=== PATIENT | female | born 1975 | race Caucasian/White ===

== ENCOUNTER 2022-06-14 06:13 | Day surgery (SDC) | payer BC, SELFPAY ==
[2022-06-14] VITALS (16 sets, daily range): BP systolic 110–146; BP diastolic 59–91; PULSE 55–85; RESP 16; TEMP 36.2–36.8; O2SAT 69–100; BMI 30.8
[2022-06-14] MEDS: LACTATED RINGERS 1000 ML 1,000 ML 100 ML IV (06:45)
[2022-06-14] MEDS: SODIUM CHLORIDE 0.9 % (FLUSH) 10 ML SYRINGE IVF (06:45)
[2022-06-14] MEDS: CEFAZOLIN 1 GM inj IVP (07:35)
[2022-06-14] MEDS: BUPIVACAINE 0.25% 30 ML INJECTION (07:50)
[2022-06-14] MEDS: BUPIVACAINE LIPOSOME 133 MG/10 ML INJ INFILTRATI (07:50)
--- NOTE | 2022-06-14 07:56 | SUR.PREOP ---
HOME COVID TEST NEGATIVE DONE 06/13/22 @ 1630.
[2022-06-14] MEDS: BACITRACIN OINTMENT BULK TUBE 1 APPLIC TOPICAL (08:08)
--- NOTE | 2022-06-14 08:16 | PM.GSPRC ---
Operative Note Date of procedure: 06/14/22 Type of Procedure: Excision of perianal skin tags Procedure Description: The patient was brought to the Operating Room, placed in the supine position, general anesthesia was administered, and the patient was intubated by Anesthesia without difficulty. The patient was then transferred to the Operating Room table, placed in the prone jackknife position with appropriate bumps and padding. Care was taken to ensure the genitalia and breasts were properly positioned on the hip and chest rolls, respectively. The shoulders and arms were positioned with care to protect the brachial plexus. The buttocks were taped laterally. A sterile prep and drape was done in the usual fashion. A formal timeout for patient safety was performed in accordance with hospital protocol, thereby correctly matching this patient with their diagnosis and intended procedure. External examination, digital rectal examination, and anoscopic examination were all done and revealed 2 large skin tags that were right and left lateral. Along the posterior midline was scar tissue from patient's previous anal fissure operation. Attention was directed to the largest skin tag which was positioned right lateral. An elliptical incision around the skin tag was made with electrocautery, taking care to stay above the muscle fibers. The wound was closed in a running locked manner starting at the apex (proximal aspect of elliptical excision) with 3-0 chromic suture, coming out to the anoderm and then running back up in a simple fashion and tying down at the apex. Hemostasis was excellent. The 2nd skin tag that was present left lateral was then excised in the same manner. Tissue was passed off to be sent to pathology. A mixture of Exparel and 0.25% Marcaine was used to anesthetize the area and perform a pudendal nerve block. The patient tolerated procedure well. There were no apparent complications. Instrument, sponge, and needle counts were correct at the end of the case. Findings: To large perianal skin tags positioned right lateral and left lateral, excised and repaired primarily. Anesthesia: GETA Surgeon: Judy Talbert MD Estimated blood loss (mL): 5 Condition: stable Disposition: same day
--- NOTE | 2022-06-14 08:17 | W.ANESCHARGE ---
Anesthesia Charges Start Date/Time Anesthesia Start Date: 06/14/22 Anesthesia Start Time: 07:30 Stop Date/Time Anesthesia Stop Date: 06/14/22 Anesthesia Stop Time: 08:19 Summary Emergency: No
--- NOTE | 2022-06-14 08:57 | SUR.PHASEII ---
PATIENT TURNED NERVE STIMULATOR OFF FOR PROCEDURE, TURNED BACK ON AT 0855. PATIENT HAVING ABDOMINAL CRAMPING AND THINKS NOW IT'S ON IT WILL HELP ABDOMINAL CRAMPING.
--- NOTE | 2022-06-14 09:21 | W.ANESCHARGE ---
Anesthesia Charges Start Date/Time Anesthesia Start Date: 06/14/22 Anesthesia Start Time: 07:30 Stop Date/Time Anesthesia Stop Date: 06/14/22 Anesthesia Stop Time: 08:19 Summary Emergency: No
[2022-06-14] MEDS: ALBUTEROL SULFATE 2.5 MG/3 ML VIAL.NEB NEB (09:26)
--- NOTE | 2022-06-14 09:39 | SUR.PHASEII ---
PATIENT'S O2 SATS DROP TO LOW 70'S-HIGH 60'S. PATIENT AWAKE, ALERT, COUGHING AND DEEP BREATHING WHEN MONITOR ALARMS FOR LOW O2 SATS. PATIENT GIVEN INCENTIVE SPIROMETER AND CONSISTENTLY GETTING BETWEEN 1500-2000ML. DR. MANZANARES AWARE, ORDERED ALBUTEROL NEBULIZER. PATIENT TOLERATED NEBULIZER AND WILL DROP SATS INTO MID 80'S. PATIENT DEEP BREATHING WITH DROPS IN SATS AND WILL SAT IN MID 90'S WITH DEEP BREATHING. WILL CONTINUE TO MONITOR.
[2022-06-14] MEDS: OXYCODONE 5 MG TABLET PO (10:31)
--- NOTE | 2022-06-14 10:33 | SUR.PHASEII ---
PATIENT HOLDING SATS ABOVE 90 FOR 15-20 MINUTES. ANESTHESIA AWARE, PATIENT WANTING TO BE DISCHARGED.
== END 2022-06-14 10:48 | disposition home or self-care (01) ==
PROVIDERS: Visit Provider Surgery
PROC: (CPT 46040; principal; 2022-06-14 07:30)
DX: K64.4 Residual hemorrhoidal skin tags (principal)
CPT/HCPCS: 46230; 00902; 88304; 94640; A9270; C9290; J0330; J0690; J1100; J1885; J2405; J2704; J2710; J3010; J3490; J7120